=== PATIENT | female | born 1940 | race Caucasian/White ===

== ENCOUNTER 2017-08-12 17:36 | Inpatient (IN) | payer MEDICARE, BC ==
[~2017-08-12] VITALS: Ht 152.4 cm; Wt 55.2 kg
[~2017-08-12 17:36] MED LIST: ACET325T14 PO; ALBU18HF INH; ALEN70TA3 PO; ASCO10004 PO; ASPI-515 PO; CALC0.25 PO; CALC600T23 PO; CYAN10002 IM; DULO30CA2 PO; ERGO500017 PO; FESO8TAB PO; FLUT9.9S NAS; FURO20TA3 PO; LANS30CA PO; LEVO75TA5 PO; MELA5TAB19 PO; METO25TA35 PO; MONT10TA9 PO; MULT-252 PO; OMEP-110 PO; OXYB10TA PO; POLY17PO3 PO; POTA10CA PO; RANI300T PO; SIMV10TA PO; SUCR1TAB PO; TIOT18CA INH; WHEA1POW5 PO
[2017-08-12] MEDS ORDERED: SODIUM CHLORIDE FLUSH 10ML SYR IVF ONE (18:30)
[2017-08-12 18:58] LABS: HEMATOCRIT 32.8 % (34.6-47.8); HEMOGLOBIN 10.8 g/dL (11.7-16.4); WHITE BLOOD COUNT 10.8 x10^3/uL (3.4-10)
[2017-08-12] MEDS ORDERED: PLEASE ENTER WEIGHT MC SCH (19:00)
[2017-08-12 19:09] LABS: ASPARTATE AMINO TRANSFERASE 13 U/L (15-37); BLOOD UREA NITROGEN 27 mg/dL (7-18)
[2017-08-12 19:16] LABS: IS PT STATUS REG ER OR PRE ER? YES
[2017-08-12] MEDS ORDERED: LANS30CA PO (20:08)
[2017-08-12] MEDS ORDERED: FESO8TAB PO (20:08)
[2017-08-12] MEDS ORDERED: SODIUM CHLORIDE 0.9% 1,000ML IVBOLUS ONE (20:30)
[2017-08-12 20:45] LABS: PATH.CAST-FLAG NOT PRESENT; SPERM-FLAG NOT PRESENT; SRC-FLAG NOT PRESENT; XTAL-FLAG NOT PRESENT; YLC-FLAG NOT PRESENT
[2017-08-12] MEDS ORDERED: ALBUMIN HUMAN 5% 250 ML IV ONE (21:00)
[2017-08-12] MEDS ORDERED: FENTANYL PF 100 MCG/2ML IVPush PRN (21:00)
[2017-08-12] MEDS ORDERED: BISACODYL 10 MG SUPP PR PRN (21:00)
[2017-08-12] MEDS ORDERED: DOCUSATE 100 MG CAPSULE PO PRN (21:00)
[2017-08-12] MEDS ORDERED: METOPROLOL TARTRATE 25 MG TABLET PO PRN (21:00)
[2017-08-12] MEDS ORDERED: LABETALOL 5MG/ML, 20ML IVPush PRN (21:00)
[2017-08-12] MEDS ORDERED: ONDANSETRON 2MG/ML, 2ML IVPush PRN (21:00)
[2017-08-12] MEDS ORDERED: FESOTERODINE FUMARATE 8 MG PO SCH (21:00)
[2017-08-12] MEDS ORDERED: ERGOCALCIFEROL 50,000 UNIT CAPSULE PO SCH (21:00)
[2017-08-12] MEDS ORDERED: POLYETHYLENE GLYCOL 17 GM PACKET PO PRN (21:00)
[2017-08-12 23:43] VITALS: BP 119/78
[2017-08-13] MEDS: SIMVASTATIN 10 MG TABLET PO SCH ×2 (01:43→21:00)
[2017-08-13] MEDS: HEPARIN 5,000 UNITS/ML, 1ML SQ SCH ×3 (01:44→18:44)
[2017-08-13] MEDS: SODIUM CHLORIDE FLUSH 10ML SYR IVF SCH ×3 (01:44→21:00)
[2017-08-13] MEDS: MELATONIN 5 MG TABLET PO SCH ×2 (01:44→21:33)
[2017-08-13 02:00] VITALS: BP 116/79
[2017-08-13 06:08] LABS: ASPARTATE AMINO TRANSFERASE 11 U/L (15-37); BLOOD UREA NITROGEN 30 mg/dL (7-18)
[2017-08-13 06:14] LABS: HEMATOCRIT 23.8 % (34.6-47.8); WHITE BLOOD COUNT 9.3 x10^3/uL (3.4-10)
[2017-08-13 07:56] VITALS: BP 124/81
[2017-08-13] MEDS: FESOTERODINE MC SCH ×2 (09:00→17:06)
[2017-08-13] MEDS: ALENDRONATE MC SCH ×2 (09:00→17:06)
[2017-08-13] MEDS: IPRATROPIUM 0.5 MG/2.5 ML INHA HHN SCH ×3 (09:00→21:47)
[2017-08-13] MEDS ORDERED: FAMOTIDINE 40 MG TABLET PO SCH (09:00)
[2017-08-13] MEDS: ASPIRIN 81 MG TABLET EC PO SCH (10:42)
[2017-08-13] MEDS: OXYBUTYNIN CHLORIDE 5 MG TABLET PO SCH ×2 (10:42→21:33)
[2017-08-13] MEDS: MULTIVITAMIN 1 TABLET PO SCH (10:42)
[2017-08-13] MEDS: DULOXETINE 30 MG CAPSULE.DR PO SCH (10:42)
[2017-08-13] MEDS: CALCIUM POLYCARBOPHIL 625 MG TABLET PO SCH (10:44)
[2017-08-13] MEDS: MONTELUKAST 10 MG TABLET PO SCH (10:44)
[2017-08-13] MEDS: CALCITRIOL 0.25 MCG CAPSULE PO SCH (10:44)
[2017-08-13] MEDS: LEVOTHYROXINE 75 MCG TABLET PO SCH (10:44)
[2017-08-13] MEDS: PANTOPROZOLE 40MG TABLET PO SCH (10:44)
[2017-08-13 12:53] VITALS: BP 118/78
[2017-08-13] MEDS: PEPCID + PROTONIX MC SCH (18:00)
[2017-08-13 18:58] VITALS: BP 104/70
[2017-08-13] MEDS: ACETAMINOPHEN 325 MG TABLET PO PRN (21:56)
[2017-08-14] MEDS ORDERED: IPRATROPIUM 0.5 MG/2.5 ML INHA NPPB SCH (01:00)
[2017-08-14] MEDS: ALENDRONATE MC SCH ×2 (01:00→09:00)
[2017-08-14] MEDS: FESOTERODINE MC SCH ×2 (01:00→09:00)
[2017-08-14 01:16] VITALS: BP 110/62
[2017-08-14] MEDS: PEPCID + PROTONIX MC SCH ×2 (02:00→10:00)
[2017-08-14] MEDS: HEPARIN 5,000 UNITS/ML, 1ML SQ SCH ×2 (02:44→10:44)
[2017-08-14 06:35] LABS: HEMATOCRIT 24.7 % (34.6-47.8); HEMOGLOBIN 8.1 g/dL (11.7-16.4); WHITE BLOOD COUNT 8.9 x10^3/uL (3.4-10)
[2017-08-14 07:16] LABS: ASPARTATE AMINO TRANSFERASE 8 U/L (15-37); BLOOD UREA NITROGEN 31 mg/dL (7-18)
[2017-08-14 09:00] VITALS: BP 112/72
[2017-08-14] MEDS: MULTIVITAMIN 1 TABLET PO SCH (09:00)
[2017-08-14] MEDS: SODIUM CHLORIDE FLUSH 10ML SYR IVF SCH (09:00)
[2017-08-14] MEDS: ASPIRIN 81 MG TABLET EC PO SCH (09:00)
[2017-08-14] MEDS: IPRATROPIUM 0.5 MG/2.5 ML INHA NPPB SCH ×2 (09:00→10:50)
[2017-08-14] MEDS ORDERED: FAMOTIDINE 20 MG TABLET PO SCH (09:00)
[2017-08-14] MEDS: PANTOPROZOLE 40MG TABLET PO SCH (09:00)
[2017-08-14] MEDS: DULOXETINE 30 MG CAPSULE.DR PO SCH (11:32)
[2017-08-14] MEDS: ACETAMINOPHEN 325 MG TABLET PO PRN (11:33)
[2017-08-14] MEDS: MONTELUKAST 10 MG TABLET PO SCH (11:33)
[2017-08-14] MEDS: LEVOTHYROXINE 75 MCG TABLET PO SCH (11:33)
[2017-08-14] MEDS: CALCIUM POLYCARBOPHIL 625 MG TABLET PO SCH (11:33)
[2017-08-14] MEDS: CALCITRIOL 0.25 MCG CAPSULE PO SCH (11:33)
[2017-08-14] MEDS: OXYBUTYNIN CHLORIDE 5 MG TABLET PO SCH (11:33)
[2017-08-14] MEDS ORDERED: TOVIAZ MC SCH (12:30)
[2017-08-14 12:59] VITALS: BP 92/68
[2017-08-20] MEDS ORDERED: ALENDRONATE 70 MG TABLET PO SCH (06:30)
== END 2017-08-14 15:48 | disposition hospice, home (50) | DRG 291 ==
LOC: ED 20:35 → EDIP 20:40 → ED 21:07 → 4WST 23:05
PROVIDERS: ADMIT Internal Medicine; ATTEND Internal Medicine
PROC: 0T9B70Z Drainage of Bladder with Drainage Device, Via Natural or Artificial Opening (ICD-10-PCS; principal; 2017-08-12)
PROC: 5A1D70Z Performance of Urinary Filtration, Intermittent, Less than 6 Hours Per Day (ICD-10-PCS; 2017-08-12)
DX: I13.2 Hypertensive heart and chronic kidney disease with heart failure and with stage 5 chronic kidney disease, or end stage renal disease (principal); N18.6 End stage renal disease; E43 Unspecified severe protein-calorie malnutrition; N17.9 Acute kidney failure, unspecified; E86.0 Dehydration; D63.8 Anemia in other chronic diseases classified elsewhere; N39.0 Urinary tract infection, site not specified; J44.9 Chronic obstructive pulmonary disease, unspecified; E03.9 Hypothyroidism, unspecified; I50.9 Heart failure, unspecified; E16.2 Hypoglycemia, unspecified; G47.30 Sleep apnea, unspecified; K21.9 Gastro-esophageal reflux disease without esophagitis; K59.00 Constipation, unspecified; R13.10 Dysphagia, unspecified; R62.7 Adult failure to thrive; Z66 Do not resuscitate; Z79.83 Long term (current) use of bisphosphonates; Z79.899 Other long term (current) drug therapy; Z98.84 Bariatric surgery status; Z99.2 Dependence on renal dialysis; Z90.49 Acquired absence of other specified parts of digestive tract
CPT/HCPCS: 36415; 71010; 80053; 81001; 83605; 83735; 83880; 84100; 84145; 84484; 85025; 85610; 85730; 87040; 87077; 87086; 87147; 87181; 87186; 87324; 89055; 93005; 94640; 99285; J1644; J7644; P9041; J7030; P9045